=== PATIENT | female | born 1945 | race African-American/Black ===

== ENCOUNTER 2023-12-14 19:08 | Emergency (ER) | payer MEDICARE, SELFPAY ==
[2023-12-14 19:11] VITALS: BP 166/86; BMI 16.9
--- NOTE | 2023-12-14 19:53 | ED.SKININJ ---
HPI-Injury
General
Chief Complaint: Skin Surface Trauma
Source: patient
Exam Limitations: none
Time Seen by Provider: 12/14/23 19:28
Travel History
Have you had any contact with someone who has COVID-19?: No
Do you have any symptoms of coronavirus? Fever > 100 degrees, chills, cough, shortness of breath, sore throat, loss of taste or smell, muscle aches, or headache?: No
History of Present Illness-Injury
Initial Injury comments:
78-year-old female presents with laceration to right index finger she sustained today. 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 Vaccines up-to-date. She was unable to get her finger stop bleeding at home. No numbness or tingling or
loss of function. No other complaints at this time
Phy Exam
Physical Exam
Physical Exam:
General: Well-appearing female no acute respiratory distress
Skin: 1 cm transverse laceration volar aspect right index finger at the level of the DIP joint. This is superficial without tendon involvement
Vascular: Brisk cap refill to the tip of the finger
Neurologic: Good sensation right index finger
Musculoskeletal exam: Full range of motion right index finger
Course
Vital Signs
Initial and Last Documented VS:
Initial Vital Signs
Temp Pulse Resp BP Pulse Ox
98.7 F 69 16 166/86 100
12/14/23 19:11 12/14/23 19:11 12/14/23 19:11 12/14/23 19:11 12/14/23 19:11
Last Documented Vital Signs
Temp Pulse Resp BP Pulse Ox
98.7 F 69 16 166/86 100
12/14/23 19:11 12/14/23 19:11 12/14/23 19:11 12/14/23 19:11 12/14/23 19:11
MDM/Problems Addressed
Differential Diagnosis Includes:
Laceration right index finger. No tendon involvement. This was cleansed with saline solution. This does require suture closure. This was locally anesthetized with 1% lidocaine. The wound was then held in approximation with 5-0 Prolene sutures
times 3 sutures. This was done in a simple erupted fashion. Dressing was applied. No indication for tetanus update that she is up-to-date already. Instructions were given for wound care and she was discharged
*Critical Care Note
Total Time (30-74mins, 75-104mins- exclusive of procedures): Not Applicable
ED Attending Note
-
Portions of this chart may have been created with voice recognition software.� Occasional wrong word or��sound alike� substitutions may have occurred due to the inherent limitations of voice recognition software.
Discharge Plan
Departure
Patient Disposition: Home (Routine Discharge)
Date of Disposition: 12/14/23
Time of Disposition: 19:58
Patient with high blood pressure during this ER visit?: No
Discharge Problem:
Laceration
Instructions: Laceration Repair With Stitches (DC)
Activity Restrictions/Additional Instructions:
Keep clean. Pat dry if it gets wet. Have sutures removed in 10 to 12 days. Return if needed otherwise.
Interventions
Interventions:
*Risk Screen - Suicide Last Done: 12/14/23 19:11
*General Assessment Last Done: 12/14/23 19:21
*Neglect/Abuse Screening Last Done: 12/14/23 19:11
ED- Fall Risk Assessment Last Done: 12/14/23 19:21
*ED COVID-19 Vaccine History Last Done: 12/14/23 19:11
ED-Skin Assessment Last Done: 12/14/23 19:21
[2023-12-14 21:00] VITALS: BP 156/66
== END 2023-12-14 21:01 | disposition home or self-care (01) ==
LOC: EMR 19:08
PROVIDERS: EMERGENCY PHYSICIAN Emergency Medicine; FAMILY PHYSICIAN Internal Medicine
DX: S61.210A Laceration without foreign body of right index finger without damage to nail, initial encounter (principal); W26.9XXA Contact with unspecified sharp object(s), initial encounter
CPT/HCPCS: 99282; 12001

== ENCOUNTER 2023-12-19 08:57 | Emergency (ER) | payer MEDICARE, SELFPAY ==
[2023-12-19 09:00] VITALS: BP 157/70
--- NOTE | 2023-12-19 09:13 | ED.GENMED ---
History of Present Illness
General
Chief Complaint: Swelling
Source: patient
Exam Limitations: none
Time Seen by Provider: 12/19/23 09:05
Travel History
Have you had any contact with someone who has COVID-19?: No
Do you have any symptoms of coronavirus? Fever > 100 degrees, chills, cough, shortness of breath, sore throat, loss of taste or smell, muscle aches, or headache?: No
History of Present Illness
History of Present Illness:
78-year-old female presents with swelling to both legs she has noticed over the past 2 to 3 days. She denies chest pain or shortness of breath. She is healthy and does not take any medications. No fever. She was here 5 days ago for laceration to
her right index finger. She had sutures placed. She states she does not eat any salt. No recent travel or surgery. No difficulty sleeping. She denies a cough. No pain to her legs. No other complaints at this time
Phy Exam
Physical Exam
Physical Exam:
General: Well-appearing female no acute respiratory distress
HEENT: Normocephalic atraumatic neck is supple
Heart: Regular rate and rhythm
Lungs: Clear bilaterally
Extremities: Mild pitting edema bilateral lower extremities
Vascular: 2+ dorsalis pedis pulse bilateral feet
Skin: No erythema or rash
Scores
Heart Failure Risk
Heart Failure Risk Score: Not Applicable
Course
Orders/Labs/Results
Orders:
Orders
12/19/23 09:27
Complete Blood Count/With Diff Urgent
Comprehensive Metabolic Panel Urgent
NT-proBNP Urgent
Abnormal Lab Results
12/19/23
09:27
WBC 3.9 L 10^3/uL
(4.8-10.8)
Hgb 9.9 L g/dL
(12.0-16.0)
Hct 31.5 L %
(37.0-47.0)
MCV 72.9 L fL
(81.0-99.0)
MCH 22.9 L pg
(27.0-31.0)
MCHC 31.4 L g/dL
(33.0-37.0)
RDW 15.7 H %
(11.5-14.5)
Absolute Lymphs (auto) 0.9 L 10^3/uL
(1.2-3.4)
Chloride 109 H mmol/L
(98-107)
AST 38 H U/L
(14-36)
12/19/23 09:27
12/19/23 09:27
Vital Signs
Initial and Last Documented VS:
Initial Vital Signs
Temp Pulse Resp BP Pulse Ox
98.4 F 62 18 157/70 98
12/19/23 09:00 12/19/23 09:00 12/19/23 09:00 12/19/23 09:00 12/19/23 09:00
Last Documented Vital Signs
Temp Pulse Resp BP Pulse Ox
98.4 F 62 18 157/70 98
12/19/23 09:00 12/19/23 09:00 12/19/23 09:00 12/19/23 09:00 12/19/23 09:00
MDM/Problems Addressed
Differential Diagnosis Includes:
Swelling to both legs. Patient states she has been more sedentary since she injured her finger. Will check labs including kidney and liver functions as well as BNP. No respiratory distress cough or shortness of breath. No DVT risk factors.
*Critical Care Note
Total Time (30-74mins, 75-104mins- exclusive of procedures): Not Applicable
Update Note
Update Note:
Patient reevaluated still nontoxic. Labs reviewed without significant finding. Recommended elevation of feet and watch sodium intake. Recommended follow-up with family doctor for lower extremity edema
ED Attending Note
-
Portions of this chart may have been created with voice recognition software.� Occasional wrong word or��sound alike� substitutions may have occurred due to the inherent limitations of voice recognition software.
Discharge Plan
Departure
Patient Disposition: Home (Routine Discharge)
Date of Disposition: 12/19/23
Time of Disposition: 11:31
Patient with high blood pressure during this ER visit?: No
Discharge Problem:
Edema
Instructions: Dependent Edema (DC)
Referrals:
Enoch Chauhan, DO [Family Provider] -
Activity Restrictions/Additional Instructions:
Elevate legs for swelling. Watch sodium intake. Return if worse otherwise follow-up with your family doctor
Interventions
Interventions:
*Risk Screen - Suicide Last Done: 12/19/23 09:03
*General Assessment Last Done: 12/19/23 09:02
*Neglect/Abuse Screening Last Done: 12/19/23 09:03
Discharge Date and Time
Print Language: ROMANIAN
[2023-12-19 09:47] LABS: % Eosinophils 1.8 % (0-6); % Immature Granulocytes 0.3 % (0-0.5); % Lymphocytes 21.7 % (20.5-51.1); % Monocytes 8.9 % (1.7-9.3); % Neutrophils 66.3 % (42.2-75.2); Absolute Eosinophils 0.1 10^3/uL (0-0.7); Absolute Lymphocytes 0.9 10^3/uL (1.2-3.4); Absolute Monocytes 0.4 10^3/uL (0.1-0.6); Absolute Neutrophils 2.6 10^3/uL (1.4-6.5); Hematocrit 31.5 % (37.0-47.0); Hemoglobin 9.9 g/dL (12.0-16.0); Mean Corp Hgb Conc. 31.4 g/dL (33.0-37.0); Mean Corpuscular Hgb 22.9 pg (27.0-31.0); Mean Corpuscular Volume 72.9 fL (81.0-99.0); Mean Platelet Volume 9.9 fL (7.4-10.4); Nucleated Red Blood Cells % 0 %; Platelet Count 229 10^3/uL (130-400); Red Blood Cell Count 4.32 10^6/uL (4.20-5.40); Red Cell Dist. Width 15.7 % (11.5-14.5); White Blood Cell Count 3.9 10^3/uL (4.8-10.8)
[2023-12-19 09:59] LABS: ALT (SGPT) 26 U/L (0-35); AST (SGOT) 38 U/L (14-36); Albumin 4.1 g/dl (3.5-5.0); Alkaline Phosphatase 89 U/L (38-126); Blood Urea Nitrogen 17 mg/dl (7-17); Calcium 9.3 mg/dl (8.4-10.2); Carbon Dioxide 24 mmol/L (22-30); Chloride 109 mmol/L (98-107); Glucose 84 mg/dl (70-99); Sodium 137 mmol/L (135-145); Total Bilirubin 1.2 mg/dl (0.2-1.3); eGFR > 60.00
[2023-12-19 10:00] VITALS: BP 137/65
[2023-12-19 10:08] LABS: NT-proBNP 77.5 pg/ml
[2023-12-19 12:10] VITALS: BP 159/72
== END 2023-12-19 12:17 | disposition home or self-care (01) ==
LOC: EMR 08:57
PROVIDERS: Physician Assistant; EMERGENCY PHYSICIAN Emergency Medicine; FAMILY PHYSICIAN Internal Medicine
DX: R60.9 Edema, unspecified (principal); M79.89 Other specified soft tissue disorders; R60.0 Localized edema
CPT/HCPCS: 99283; 80053; 83880; 85025

== ENCOUNTER 2023-12-25 08:58 | Emergency (ER) | payer MEDICARE, SELFPAY ==
[2023-12-25 09:02] VITALS: BP 159/69
--- NOTE | 2023-12-25 09:08 | ED.GENMED ---
History of Present Illness
General
Chief Complaint: Wound Check/Suture Removal
Source: patient and records
Exam Limitations: none
Time Seen by Provider: 12/25/23 09:08
Nursing documentation reviewed up to this point in time: agreed with
Travel History
Have you had any contact with someone who has COVID-19?: No
Do you have any symptoms of coronavirus? Fever > 100 degrees, chills, cough, shortness of breath, sore throat, loss of taste or smell, muscle aches, or headache?: No
History of Present Illness
History of Present Illness:
78 y/o female presenting to the emergency department today for suture removal. 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 Patient had 3 sutures placed and she states that one suture fell out on its own.
Patient denies fevers or chills, purulent drainage from the wound, or erythema surrounding the wound. Patient feels well.
Review of Systems
Review of Systems
All Other Systems: ROS reviewed and negative except as documented in HPI and ROS
Phy Exam
Physical Exam
Physical Exam:
Vitals: Patient's vital signs are stable
General: Patient is well appearing and in no acute distress.
Skin: Warm and dry, no rashes or lesions. [address] on right index finger.
Head: Normocephalic, atraumatic
Cardiac: Regular rate
Pulm: Normal respiratory effort
Musculoskeletal: No tenderness to palpation of right hand or right digits. Full range of motion of right digits.
Neuro: CN II-XII intact. AAOx3. No focal neurologic deficits.
Course
Vital Signs
Initial and Last Documented VS:
Initial Vital Signs
Temp Pulse Resp BP Pulse Ox
97.9 F 54 16 159/69 100
12/25/23 09:02 12/25/23 09:02 12/25/23 09:02 12/25/23 09:02 12/25/23 09:02
Last Documented Vital Signs
Temp Pulse Resp BP Pulse Ox
97.9 F 54 16 159/69 100
12/25/23 09:02 12/25/23 09:02 12/25/23 09:02 12/25/23 09:02 12/25/23 09:02
MDM/Problems Addressed
Differential Diagnosis Includes:
presentation for suture removal
MDM/Problems Addressed:
suture removal
Chronic conditions affecting care:
n/a
Acute Exacerbation and/or Progression of Chronic Illness:
n/a
*Pulse Oximetry
Patient hypoxic: no
*Critical Care Note
Total Time (30-74mins, 75-104mins- exclusive of procedures): Not Applicable
Data Reviewed
Review of Other/Old Records Reveals: Records (reviewed ER physician documentation from 12/19/23, 12/14/23)
Source: patient and records
Patient Management
Escalation/DeEscalation of care consider admission/obs:
78 y/o female presenting to the emergency department today for suture removal. 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 Patient had 3 sutures placed and she states that one suture fell out on its own.
Remaining sutures were removed. Patient tolerated procedure well. Return precautions given.
ED Attending Note
-
Portions of this chart may have been created with voice recognition software.� Occasional wrong word or��sound alike� substitutions may have occurred due to the inherent limitations of voice recognition software.
Discharge Plan
Departure
Patient Disposition: Home (Routine Discharge)
Date of Disposition: 12/25/23
Time of Disposition: 09:17
Patient with high blood pressure during this ER visit?: Yes
Condition: Good
Discharge Problem:
Encounter for removal of sutures
Instructions: Stitches Removal, Wound Care (DC)
Activity Restrictions/Additional Instructions:
Please return to the emergency department should you experience fevers or chills, purulent drainage from the wound, surrounding redness to the wound, or other concerning signs or symptoms.
Please follow up with your primary care provider.
Discharge Date and Time
Print Language: FILIPINO
== END 2023-12-25 09:50 | disposition home or self-care (01) ==
LOC: EMR 08:58
PROVIDERS: EMERGENCY PHYSICIAN Student in an Organized Health Care Education/Training Program
DX: Z48.02 Encounter for removal of sutures (principal)
CPT/HCPCS: 99281